=== PATIENT | female | born 1960 | race Caucasian/White ===

== ENCOUNTER 2018-07-02 07:08 | Outpatient (CLI) | payer OTHER ==
[2018-07-02] MEDS ORDERED: Gadobenate Dimeglumine 529 MG/1 ML (20ML VIAL) ONE (14:28)
== END 2018-07-02 07:09 | disposition home or self-care (01) ==
LOC: BICMRI 07:08
PROVIDERS: ATTEND Surgery
DX: R92.8 Other abnormal and inconclusive findings on diagnostic imaging of breast (principal); Z85.3 Personal history of malignant neoplasm of breast
CPT/HCPCS: A9579; C8908

== ENCOUNTER 2024-04-14 14:35 | Outpatient (CLI) | payer MEDICARE, OTHER | END 2024-04-14 14:36 | disposition home or self-care (01) | LOC: BICMAMMO 14:35 | PROVIDERS: ATTEND Internal Medicine | DX: M85.89 Other specified disorders of bone density and structure, multiple sites (principal) | CPT/HCPCS: 77080 ==